=== PATIENT | female | born 1980 | race Caucasian/White ===

== ENCOUNTER 2019-12-16 12:38 | Emergency (ER) | payer MEDICAID ==
[~2019-12-16] VITALS: Ht 160 cm; Wt 88.5 kg
[~2019-12-16 12:38] MED LIST: APIX5TAB4 PO; PROV10 PO
[2019-12-16 12:44] VITALS: BP_SYST 135
--- NOTE | 2019-12-16 12:54 | NUR ---
Patient came in from home for evaluation of leg pain to both legs. Patient reports being bitten by a mosquito yesterday. Right calf swelling and redness noting, edema to both legs noted.
--- NOTE | 2019-12-16 12:54 | NUR ---
Patient to ER bed 3 to gown for evaluation. Side rails up. Report given to RONEY Lucero.
--- NOTE | 2019-12-16 12:57 | NUR ---
ER at bedside examining patient.
[2019-12-16 13:17] VITALS: BP_SYST 135
--- NOTE | 2019-12-16 13:20 | NUR ---
Patient given written and verbal discharge instructions and verbalizes understanding. ER MD discussed with patient the results and treatment provided. Patient in stable condition. ID arm band removed. Rx of Prednisone, Lasix, Clindamycin, and Zyrtec given. Patient educated on pain management and to follow up with PMD. Pain Scale 2/10. Opportunity for questions provided and answered. Medication side effect fact sheet provided.
== END 2019-12-16 13:17 | disposition home or self-care (01) ==
LOC: SED 12:38
DX: S80.862A Insect bite (nonvenomous), left lower leg, initial encounter (principal); S80.861A Insect bite (nonvenomous), right lower leg, initial encounter; I87.8 Other specified disorders of veins; W57.XXXA Bitten or stung by nonvenomous insect and other nonvenomous arthropods, initial encounter; Y93.89 Activity, other specified; Y92.89 Other specified places as the place of occurrence of the external cause; Y99.8 Other external cause status
CPT/HCPCS: 99283